=== PATIENT | male | born 1965 | race Caucasian/White ===

== ENCOUNTER 2020-03-08 15:16 | Outpatient (CLI) | payer BC, SELFPAY ==
[2020-03-08 16:04] LABS: Basophils Absolute Auto 0.1 K/mm3 (0.0-0.1); Basophils Percent Auto 0.8 % (0.2-1.2); Eosinophils Absolute Auto 0.3 K/mm3 (0-0.3); Eosinophils Percent Auto 3.4 % (0-4.4); Hematocrit 49.2 % (42.0-52.0); Hemoglobin 16.8 g/dL (14.0-18.0); Immature Granulocyte Absolute 0.01 K/mm3 (0.00-0.031); Immature Granulocyte Percent A 0.1 % (0-0.5); Lymphocytes Absolute Auto 2.91 K/mm3 (0.9-3.2); Lymphocytes Percent Auto 34.2 % (18.3-44.2); Mean Corpuscular HGB Conc 34.1 g/dl (32-36); Mean Corpuscular Hemoglobin 33.9 pg (26-34); Mean Corpuscular Volume 99.4 fl (80-100); Mean Platelet Volume 9.6 fl (7.4-10.4); Monocytes Absolute Auto 0.7 K/mm3 (0.1-0.6); Monocytes Percent Auto 8.5 % (2.6-8.5); Neutrophils Absolute Auto 4.5 K/mm3 (1.3-6.7); Platelet Count Result 191 k/mm3 (150-375); Red Blood Count 4.95 M/mm3 (4.6-6.20); Red Cell Distribution Width 12.7 % (11.5-14.5); White Blood Count 8.5 K/mm3 (4.5-10.0)
[2020-03-08 16:26] LABS: Blood Urea Nitrogen 13 mg/dL (9-20); Calcium 9.3 mg/dL (8.4-10.2); Carbon Dioxide 27 mmol/L (22-30); Chloride 105 mmol/L (98-107); Cholesterol 112 mg/dL (0-200); Estimated Glomerular Filt Rate > 60; Glucose 90 mg/dL (75-110); HDL Direct 39 mg/dL; Potassium 4.1 mmol/L (3.4-5.0); Sodium 139 mmol/L (137-145); Triglycerides 116 mg/dL (<150)
[2020-03-08 16:28] LABS: Hemoglobin A1C 5.9 % (<5.7)
[2020-03-08 16:36] LABS: LDL Cholesterol Direct 48 mg/dL
== END 2020-03-08 15:17 | disposition home or self-care (01) ==
LOC: ANHLAB 15:18
PROVIDERS: PCP Internal Medicine; Visit Provider Internal Medicine
DX: E78.2 Mixed hyperlipidemia (principal); Z79.899 Other long term (current) drug therapy; R73.03 Prediabetes
CPT/HCPCS: 36415; 80048; 80061; 83036; 85025

== ENCOUNTER → 2020-11-20 06:56 | Outpatient (CLI) | payer BC, SELFPAY ==
[2020-11-20 22:47] LABS: SARS-CoV-2 RNA PCR Negative
== END ==
PROVIDERS: PCP Internal Medicine
DX: Z78.9 Other specified health status (principal); Z20.822 Contact with and (suspected) exposure to COVID-19
CPT/HCPCS: C9803; U0003; U0005

== ENCOUNTER 2021-04-08 17:40 | Emergency (ER) | payer BC, SELFPAY ==
--- NOTE | ~2021-04-08 | XR_ITS ---
EXAMINATION: XR abdomen/kub 1V INDICATION: Gross hematuria and left flank pain TECHNIQUE: Supine views of the abdomen were obtained on 2 radiographs. COMPARISON: 06/22/2018 FINDINGS: There is a 1.4 cm stone of the left kidney lower pole. No stones are identified in the righ t kidney, along the expected course of the ureters, or within the urinary bladder. There is a phlebol ith of left pelvis. The lung bases are clear. The bowel gas pattern is normal. There is mild osteoart hritis of the hips. Calcified atherosclerosis is noted. IMPRESSION: 1. Left nephrolithiasis. Reviewed, dictated and finalized at location A. IMPRESSION: 1. Left nephrolithiasis.
[2021-04-08 17:44] VITALS: BP 122/75; PULSE 105; RESP 16; TEMP 36.9; O2SAT 99
--- NOTE | 2021-04-08 18:28 | ED.MALEGU ---
HPI - Male Genitourinary General Chief complaint: Urogenital-Male Stated complaint: urinary issues/back pain Time Seen by Provider: 04/08/21 17:54 Source: patient and RN notes reviewed Mode of arrival: ambulatory Limitations: no limitations History of Present Illness HPI Narrative: Patient presents today complaining of 3-day history of gross hematuria, worsening since yesterday, pain to the scrotum, and left low back pain. Patient takes Flomax daily, but his Flomax was increased by his neurologist 1 week ago, and patient states his flow has been better than normal. He does report some nausea intermittently, but denies vomiting, fever, sweats, chills. Patient does have some chronic low back pain, but reports this left low back pain is worse than normal and has been worse for the last 2 to 3 days. Patient currently takes Xarelto for history of DVT. History of kidney stones. Related Data Home Medications Medication Instructions Recorded Confirmed cholecalciferol (vitamin D3) 10 400 unit PO DAILY 11/02/19 04/08/21 mcg (400 unit) chewable tablet multivitamin 1 tablet PO DAILY 11/02/19 04/08/21 tadalafil 20 mg tablet 20 mg PO DAILY PRN 11/02/19 04/08/21 tamsulosin 0.4 mg capsule 0.4 mg PO DAILY 11/02/19 04/08/21 Allergies Allergy/AdvReac Type Severity Reaction Status Date / Time No Known Allergies Allergy Verified 04/08/21 17:50 Review of Systems Review of Systems: Narrative: CONSTITUTIONAL: Denies body aches, fever, chills, or sweats. EYES: Denies visual changes, redness, or discharge. ENT: Denies rhinorrhea, congestion, sore throat, or otalgia. CARDIOVASCULAR: Denies chest pain, palpitations, or edema. RESPIRATORY: Denies cough or dyspnea. GASTROINTESTINAL: Denies abdominal pain, vomiting, or diarrhea. + Nausea GENITOURINARY: + Hematuria, pain behind the scrotum. SKIN: Denies rash, itching, or wounds. MUSCULOSKELETAL: Denies joint pain, or myalgia. +left low back pain NEUROLOGIC: Denies headache, numbness, tingling, or weakness. PSYCH: Denies depression or anxiety. [facility] Past Medical History Medical History BMI 28.0-28.9,adult BPH (benign prostatic hyperplasia) DVT (deep venous thrombosis) LLE Elevated homocysteine Encounter for routine adult health examination without abnormal findings Encounter for special screening examination for neoplasm of prostate GERD (gastroesophageal reflux disease) Hx of colonic polyps Hx of thrombosis Hyperlipidemia Kidney stone Left foot drop Leg fracture, left Multiple sclerosis Multiple sclerosis On senior care drug therapy Personal history of nicotine dependence Pre-diabetes Sleep apnea Vitamin D deficiency Surgical History Surgical History H/O lithotripsy History of appendectomy History of surgical removal of pilonidal cyst Family History Family History Mother Family history of Parkinson's disease Other Diabetes mellitus Social History Social History Smoking status: Heavy tobacco smoker Second hand tobacco smoke exposure: No Alcohol intake: never Gender identity (if verbalized by the patient): Male Comments At time of signature, I have reviewed and agree with nursing past medical, surgical, social and family history unless otherwise noted. Please see nursing chart for further information. There is no relevant family history pertinent to the presenting complaint Exam Narrative: Exam Narrative: GENERAL: Well-appearing, well-nourished, and in no acute distress. HEAD: Normocephalic, atraumatic. EYES: EOMI. No redness or drainage. Conjunctivae normal. ENT: Mucous membranes pink and moist. NECK: Normal AROM. CHEST: No respiratory distress. Clear to auscultation. HEART: Regular rate and rhythm. No murmur appre
== END 2021-04-08 18:54 | disposition home or self-care (01) ==
PROVIDERS: Emergency Provider Nurse Practitioner
DX: N20.0 Calculus of kidney (principal); N30.01 Acute cystitis with hematuria; Z86.718 Personal history of other venous thrombosis and embolism; K21.9 Gastro-esophageal reflux disease without esophagitis; G35 Multiple sclerosis; G47.30 Sleep apnea, unspecified; N40.0 Benign prostatic hyperplasia without lower urinary tract symptoms
CPT/HCPCS: 74018; 81003; 87086; 99213; G0463

== ENCOUNTER 2023-06-30 11:57 | Emergency (ER) | payer BC, SELFPAY ==
--- NOTE | ~2023-06-30 | XR_ITS ---
XR wrist LT min 3V DATE: 06/30/2023 12:24 INDICATION: Fall. Left wrist and hand injury TECHNIQUE: 4 views of left wrist COMPARISON: None FINDINGS: There is a linear oblique fracture of the second metacarpal shaft. No other fracture or dislocation is noted. There is diffuse osteopenia. IMPRESSION: Second metacarpal shaft fracture Reviewed, dictated and finalized at location L.
--- NOTE | ~2023-06-30 | XR_ITS ---
XR hand LT min 3V DATE: 06/30/2023 12:24 INDICATION: Fall. Left hand injury TECHNIQUE: 3 views COMPARISON: None FINDINGS: There is diffuse osteopenia. There is a linear oblique virtually nondisplaced fracture through the midshaft of the second metacarp al bone. No other fracture or dislocation is detected. IMPRESSION: Virtually nondisplaced linear oblique fracture through the midshaft of the second metacar pal bones Osteopenia Reviewed, dictated and finalized at location L. IMPRESSION: Virtually nondisplaced linear oblique fracture through the midshaft of the second metacarpal bones Osteopenia
[2023-06-30 11:59] VITALS: BP 154/82; PULSE 94; RESP 16; TEMP 37; O2SAT 100
--- NOTE | 2023-06-30 13:22 | ED.GENADULT ---
HPI - General Adult General Chief complaint: Extremity Injury, Upper Stated complaint: left arm injury Time Seen by Provider: 06/30/23 12:27 History of Present Illness HPI narrative: Patient is a 58-year-old male who presents ER with left hand pain. Patient has history of chronic left-sided weakness due to MS. He had a trip and fall and struck his hand. He did not strike his head or lose consciousness. He is on Xarelto. He has swelling around the second metacarpal. He is unable to extend or flex his fingers or wrist at baseline and reports this is unchanged. Related Data Home Medications Medication Instructions Recorded Confirmed cholecalciferol (vitamin D3) 10 400 unit PO DAILY 11/02/19 04/08/21 mcg (400 unit) chewable tablet multivitamin 1 tablet PO DAILY 11/02/19 04/08/21 tadalafil 20 mg tablet (Cialis) 20 mg PO DAILY PRN Erectile 11/02/19 04/08/21 Dysfunction tamsulosin 0.4 mg capsule 0.4 mg PO DAILY 11/02/19 04/08/21 Allergies Allergy/AdvReac Type Severity Reaction Status Date / Time No Known Allergies Allergy Verified 06/30/23 12:13 Review of Systems Musculoskeletal: Comments: Left hand pain and swelling Neurologic: Denies dizziness, Denies headache(s) and Reports focal weakness (Chronic left side due to MS.) PMFSH Past Medical History Medical History BMI 28.0-28.9,adult BPH (benign prostatic hyperplasia) DVT (deep venous thrombosis) LLE Elevated homocysteine Encounter for routine adult health examination without abnormal findings Encounter for special screening examination for neoplasm of prostate GERD (gastroesophageal reflux disease) Hx of colonic polyps Hx of thrombosis Hyperlipidemia Kidney stone Left foot drop Leg fracture, left Multiple sclerosis Multiple sclerosis On senior living drug therapy Personal history of nicotine dependence Pre-diabetes Sleep apnea Vitamin D deficiency Surgical History Surgical History H/O lithotripsy History of appendectomy History of surgical removal of pilonidal cyst Family History Family History Mother Family history of Parkinson's disease Other Diabetes mellitus Social History Social History Smoking status: Heavy tobacco smoker Second hand tobacco smoke exposure: No Alcohol intake: never Gender identity (if verbalized by the patient): Male Exam Narrative: GENERAL: Well-appearing, well-nourished, and in no acute distress. HEAD: Normocephalic, atraumatic. CHEST: Clear to auscultation. No respiratory distress. HEART: Regular rate and rhythm. Normal peripheral pulses. ABDOMEN: Soft, nontender, nondistended. EXTREMITIES: Left hand with swelling over the second metacarpal near the MCP. Can move the left upper extremity at the shoulder but not the elbow or wrist which is normal for him. NEURO: Alert and oriented x3. PSYCH: Normal mood and affect. Course Course Emergency Course: Patient splinted. Follow-up with hand surgery. [place] for home. Vital Signs Vital signs: Vital Signs Temperature 98.6 F 06/30/23 11:59 Pulse Rate 94 06/30/23 11:59 Respiratory Rate 16 06/30/23 11:59 Blood Pressure 154/82 H 06/30/23 11:59 Pulse Oximetry 100 06/30/23 11:59 Oxygen Delivery Room Air 06/30/23 11:59 Temperature 98.6 F 06/30/23 11:59 Pulse Rate 94 06/30/23 11:59 Respiratory Rate 16 06/30/23 11:59 Blood Pressure 154/82 H 06/30/23 11:59 Pulse Oximetry 100 06/30/23 11:59 Oxygen Delivery Room Air 06/30/23 11:59 Procedures Orthopedic Splinting/Casting Injury #1: Splinting/Casting Date: 06/30/23 Side: left Upper Extremity Injury Location: hand Splint: customized in ED OCL: volar Pre-Procedure Neuro Vascula
== END 2023-06-30 13:40 | disposition home or self-care (01) ==
PROVIDERS: Emergency Provider Emergency Medicine
DX: S62.351A Nondisplaced fracture of shaft of second metacarpal bone, left hand, initial encounter for closed fracture (principal); G35 Multiple sclerosis; E78.5 Hyperlipidemia, unspecified; E55.9 Vitamin D deficiency, unspecified; G47.30 Sleep apnea, unspecified; N40.0 Benign prostatic hyperplasia without lower urinary tract symptoms; K21.9 Gastro-esophageal reflux disease without esophagitis; R73.03 Prediabetes; F17.200 Nicotine dependence, unspecified, uncomplicated; Z86.718 Personal history of other venous thrombosis and embolism; Z87.442 Personal history of urinary calculi; Z86.010 Personal history of colon polyps; M85.842 Other specified disorders of bone density and structure, left hand; W01.0XXA Fall on same level from slipping, tripping and stumbling without subsequent striking against object, initial encounter
CPT/HCPCS: 29125; 73110; 73130; 99284; A4565

== ENCOUNTER 2023-07-29 15:09 | Outpatient (CLI) | payer BC, SELFPAY ==
--- NOTE | ~2023-07-29 | XR_ITS ---
Left Hand Technique: PA, oblique, and lateral views were obtained. Clinical History: Second metacarpal fracture COMPARISON: 06/30/2023 Findings: Oblique, minimally displaced fracture of the second metacarpal shaft is similar to prior ex am. There is probable generalized osteopenia. Joint spaces are preserved. Soft tissues are unremarkab le. Impression: Oblique, minimally displaced fracture of the second metacarpal shaft is essentially unchanged from pr ior exam. Reviewed, dictated and finalized at location M. BPC DEVELOPER Impression: Oblique, minimally displaced fracture of the second metacarpal shaft is essenti ally unchanged from prior exam.
== END 2023-07-29 15:10 | disposition home or self-care (01) ==
PROVIDERS: Visit Provider Plastic Surgery
DX: S62.321A Displaced fracture of shaft of second metacarpal bone, left hand, initial encounter for closed fracture (principal); X58.XXXA Exposure to other specified factors, initial encounter
CPT/HCPCS: 73130

== ENCOUNTER 2023-08-12 14:47 | Outpatient (CLI) | payer BC, SELFPAY ==
--- NOTE | ~2023-08-12 | XR_ITS ---
EXAM: XR hand LT min 3V DATE: 08/12/2023 15:06 HISTORY: left 2nd mc fx . COMPARISON: 07/29/2023. FINDINGS: Decreased mineralization. Redemonstration of the oblique minimally angulated fracture of t he second metacarpal shaft, unchanged alignment. Evidence of early healing change. No new acute fract ure or dislocation. No lytic or blastic lesion. Mild scattered degenerative changes. No erosion or pe riosteal change. Soft tissues within normal limits. IMPRESSION: Osteopenia. Early healing change noted in the minimally angulated fracture of the left se cond metacarpal shaft, which is in stable alignment. Reviewed, dictated and finalized at location K. [employer] OFFICER IMPRESSION: Osteopenia. Early healing change noted in the minimally angulated f racture of the left second metacarpal shaft, which is in stable alignment.
== END 2023-08-12 14:48 | disposition home or self-care (01) ==
PROVIDERS: Visit Provider Plastic Surgery
DX: S62.301A Unspecified fracture of second metacarpal bone, left hand, initial encounter for closed fracture (principal); X58.XXXA Exposure to other specified factors, initial encounter; M85.842 Other specified disorders of bone density and structure, left hand
CPT/HCPCS: 73130

== ENCOUNTER 2024-04-01 16:17 | Emergency (ER) | payer BC, SELFPAY ==
--- NOTE | ~2024-04-01 | XR_ITS ---
XR wrist LT min 3V Ordering provider: Sinan Danielle APRN History: . wrist injury s/p fall . Comparison: None. FINDINGS: BONES: Osteopenia of the bones. Lucency in the scaphoid is possible which may indicate a fracture. Karen cency in the second metacarpal bone is also noted. JOINT SPACES: Slight narrowing of the carpometacarpal joints. SOFT TISSUES: Normal. IMPRESSION: Lucencies in the scaphoid and second metacarpal bones. Fractures cannot be excluded. Follow-up advise d. Reviewed, dictated and finalized at location A. IMPRESSION: Lucencies in the scaphoid and second metacarpal bones. Fractures cannot be excl uded. Follow-up advised.
--- NOTE | ~2024-04-01 | XR_ITS ---
XR hand LT min 3V Ordering provider: Sinan Danielle APRN History: . hand injury s/p fall . Comparison: None. FINDINGS: BONES: Lucency in the second metacarpal bone which is most likely a fracture. Follow-up advised. JOINT SPACES: Well maintained. SOFT TISSUES: Unremarkable. IMPRESSION: Lucency in the second metacarpal bone which is most likely a fracture. Follow-up advised. Reviewed, dictated and finalized at location A. IMPRESSION: Lucency in the second metacarpal bone which is most likely a fracture. Follow-u p advised.
[2024-04-01 16:27] VITALS: BP 144/82; PULSE 67; RESP 16; TEMP 36.6; O2SAT 95
--- NOTE | 2024-04-01 16:31 | ED.UPPEXIN ---
HPI - Extremity Injury (Upper) General Chief Complaint: Extremity Injury, Upper Stated Complaint: fall, L hand injury Time Seen by Provider: 04/01/24 16:21 History of Present Illness HPI narrative: 58-year-old male history of MS with left-sided of paralysis presents to the emergency room for evaluation of left hand and wrist pain. Patient states that he has foot drop on the left side, and frequently falls. states yesterday he fell at work, landing left hand and wrist. Related Data Home Medications Medication Instructions Recorded Confirmed cholecalciferol (vitamin D3) 10 400 unit PO DAILY 11/02/19 07/29/23 mcg (400 unit) chewable tablet multivitamin 1 tablet PO DAILY 11/02/19 07/29/23 tadalafil 20 mg tablet (Cialis) 20 mg PO DAILY PRN Erectile 11/02/19 07/29/23 Dysfunction tamsulosin 0.4 mg capsule 0.4 mg PO DAILY 11/02/19 07/29/23 Allergies Allergy/AdvReac Type Severity Reaction Status Date / Time No Known Allergies Allergy Verified 04/01/24 16:31 Review of Systems Review of Systems: ROS unremarkable except for noted in HPI PMFSH Past Medical History Medical History BMI 28.0-28.9,adult BPH (benign prostatic hyperplasia) DVT (deep venous thrombosis) LLE Elevated homocysteine Encounter for routine adult health examination without abnormal findings Encounter for special screening examination for neoplasm of prostate GERD (gastroesophageal reflux disease) Hx of colonic polyps Hx of thrombosis Hyperlipidemia Kidney stone Left foot drop Leg fracture, left Multiple sclerosis Multiple sclerosis On prison drug therapy Personal history of nicotine dependence Pre-diabetes Sleep apnea Vitamin D deficiency Surgical History Surgical History H/O lithotripsy History of appendectomy History of surgical removal of pilonidal cyst Family History Family History Mother Family history of Parkinson's disease Other Diabetes mellitus Social History Social History Smoking status: Heavy tobacco smoker Second hand tobacco smoke exposure: No Alcohol intake: never Lack of Transportation: No Lack of Food: Never True Current Housing: I Have Housing Concerned About Future Housing: No Difficulty Paying Gas/Electric Bills: No Difficulty Paying for Meds: No Currently Unemployed: No Education: Trade/Vocational Certificate Difficulty w/ Childcare or Family Care: No Gender identity (if verbalized by the patient): Male Exam Narrative: GENERAL: Well-appearing, well-nourished, no physical limitations, and in no acute distress. HEAD: Normocephalic, atraumatic. EYES: Conjunctivae normal, PERRLA and EOMI. CHEST: Clear to auscultation. No respiratory distress. No wheezes rales or rhonchi. HEART: Regular rate and rhythm. No murmur heard. Normal peripheral pulses. EXTREMITIES: left hand/wrist: +TTP with STS to 3rd finger, dorsal surface of hand, medial side of wrist. pain with passive movement. + snuffbox tenderness SKIN: Warm, dry, no rash. No noted wounds NEURO:. Alert and oriented x3. left-sided weakness consistent with history of MS, CN's II-XI intact bilaterally PSYCH: Cooperative. Normal mood and affect. Discharge Plan Discharge Clinical Impression: Closed fracture of scaphoid of left wrist, Closed left hand fracture Patient Disposition: Home, Self-Care Condition: Stable Instructions: Antibiotic Form, Wrist Fracture in Adults (ED) Prescriptions: New hydrocodone-acetaminophen 5-325 mg tablet 1 tablet PO Q6H PRN (Reason: pain) Qty: 20 0RF No Action cephalexin 500 mg capsule 500 mg PO Q6H 7 Days Qty: 28 0RF multivitamin Tablet 1 tablet PO DAILY tamsulosin 0.4 mg capsule 0.4 mg PO DAILY tadalafil [Cialis] 2
[2024-04-01] MEDS: HYDROcodone/acetaminophen (*CRX) 5-325 MG TABLET 1 TAB PO (17:27)
== END 2024-04-01 18:37 | disposition home or self-care (01) ==
PROVIDERS: Emergency Provider Nurse Practitioner Family
DX: S62.002A Unspecified fracture of navicular [scaphoid] bone of left wrist, initial encounter for closed fracture (principal); S62.301A Unspecified fracture of second metacarpal bone, left hand, initial encounter for closed fracture; G35 Multiple sclerosis; G81.94 Hemiplegia, unspecified affecting left nondominant side; E78.5 Hyperlipidemia, unspecified; E55.9 Vitamin D deficiency, unspecified; N40.0 Benign prostatic hyperplasia without lower urinary tract symptoms; K21.9 Gastro-esophageal reflux disease without esophagitis; M21.372 Foot drop, left foot; R73.03 Prediabetes; G47.30 Sleep apnea, unspecified; Z86.010 Personal history of colon polyps; Z86.718 Personal history of other venous thrombosis and embolism; Z87.442 Personal history of urinary calculi; F17.200 Nicotine dependence, unspecified, uncomplicated; Z79.01 Long term (current) use of anticoagulants; Z79.899 Other long term (current) drug therapy; W19.XXXA Unspecified fall, initial encounter
CPT/HCPCS: 29125; 73110; 73130; 99284; A9270

== ENCOUNTER 2024-04-28 14:44 | Outpatient (CLI) | payer BC, SELFPAY ==
--- NOTE | ~2024-04-28 | XR_ITS ---
XR hand LT min 3V Ordering provider: Cheri Barbour PA-C History: . LIMITED MOBILITY DUE TO MS/INJURY 1 MONTH AGO/PRIOR IMAGING . Comparison: April 01, 2024 FINDINGS: BONES: Fracture of the scaphoid bone is noted. Fracture in the second metacarpal bone mid shaft is no charley. Osteopenia of the bones. JOINT SPACES: Well maintained. SOFT TISSUES: Unremarkable. IMPRESSION: Fracture in the scaphoid bone. Fracture second metacarpal bone. Reviewed, dictated and finalized at location A.
== END 2024-04-28 14:45 | disposition home or self-care (01) ==
PROVIDERS: Visit Provider Physician Assistant Surgical
DX: S62.002D Unspecified fracture of navicular [scaphoid] bone of left wrist, subsequent encounter for fracture with routine healing (principal); S62.301D Unspecified fracture of second metacarpal bone, left hand, subsequent encounter for fracture with routine healing; X58.XXXD Exposure to other specified factors, subsequent encounter
CPT/HCPCS: 73130

== ENCOUNTER 2024-06-13 12:49 | Outpatient (CLI) | payer BC, SELFPAY ==
--- NOTE | ~2024-06-13 | XR_ITS ---
XR wrist LT min 3V Ordering provider: Cheri Barbour PA-C History: . Unspecified injury of left wrist, PAIN AFTER FALL . Comparison: April 28, 2024 FINDINGS: BONES: Healing Fracture of the scaphoid is noted. Healing fracture in the second metacarpal bone. JOINT SPACES: Well maintained. SOFT TISSUES: Normal. IMPRESSION: Healing fractures in the scaphoid and second metacarpal bone. Reviewed, dictated and finalized at location A.
== END 2024-06-13 12:50 | disposition home or self-care (01) ==
PROVIDERS: Visit Provider Physician Assistant Surgical
DX: S62.002D Unspecified fracture of navicular [scaphoid] bone of left wrist, subsequent encounter for fracture with routine healing (principal); S62.301D Unspecified fracture of second metacarpal bone, left hand, subsequent encounter for fracture with routine healing; W19.XXXD Unspecified fall, subsequent encounter
CPT/HCPCS: 73110

== ENCOUNTER 2024-12-12 01:52 | Day surgery (SDC) | payer OTHER, SELFPAY ==
[2024-12-02 10:12] VITALS: BMI 30.8
--- NOTE | 2024-12-02 10:25 | PC.NURSE ---
Spoke with patient regarding medication Xarelto. Patient verbalizes understanding that the last dose is to be taken on 12/09/2024 and the Endoscopist will instruct them when to restart after the procedure.
--- OUTSIDE RECORDS SUMMARY | 2024-12-12 01:55 | XMS_ITS | Referral Summary ---
Author Organization [facility] Address [address] [place] [id number] Care Team Providers Care Automatic Brine Mixer Operator Name Role Phone Iain Gracia MD Primary Care Provider [phone] Encounters Date Type Department Care Team Description 11/04/2024 Documentation [facility] Multiple Sclerosis [address] [place] [phone] Susan Victoria RN 11/04/2024 Orders Only [facility] Multiple Sclerosis [address] [place] [phone] Eduardo Lopez MD Multiple sclerosis ([facility]) (Primary Dx) 11/01/2024 10:00 AM THERMITE BOMB LOADER Telemedicine [facility] Multiple Sclerosis [address] [facility] 7th [place] [phone] Eduardo Lopez MD Multiple sclerosis ([facility]) (Primary Dx); Male erectile disorder; Abnormal gait; Cervical stenosis of spinal canal, mod-severe by MRI 2021.; Left hand weakness 10/04/[address] [phone] Ernst Delgadillo MD from Last 3 Months Allergies No known active allergies Medications cholecalciferol (VITAMIN D-3) 2000 unit capsuleIndications :Vitamin D Deficiency Take 1 capsule (2,000 Units total) by mouth daily as needed Active vitamin B complex capsuleIndications :Vitamin Deficiency Prevention Take 1 capsule by mouth every morning Active esomeprazole DR (NexIUM) 20 mg capsuleIndications :Stress Ulcer Prophylaxis Take 1 capsule (20 mg total) by mouth daily before breakfast Active tadalafiL (CIALIS) 20 mg tablet TAKE 1 TABLET BY MOUTH ONE HOUR BEFORE NEEDED DIRECTED 3 tablet 3 08/27/20 Active Additional Information Patient taking differently: 20 mg oral Daily PRN, TAKE 1 TABLET BY MOUTH ONE HOUR BEFORE NEEDED DIRECTED,Indications: Erectile Dysfunction, Informant: Self, Reported on 11/01/2024 [id number] on-minerals tabletIndications: Vitamin Deficiency Prevention Take 1 tablet by mouth every morning Active ascorbic acid (VITAMIN C) 100 mg tablet Take 1 tablet (100 mg total) by mouth daily Active rosuvastatin (CRESTOR) 40 mg tabletIndications: Mixed hyperlipidemia TAKE 1 TABLET(40 MG) BY MOUTH DAILY 90 tablet 3 04/12/20 24 Active tamsulosin (FLOMAX) 0.4 mg extended release capsule Take 1 capsule (0.4 mg total) by mouth daily 90 capsule 07/07/20 Active metFORMIN XR (GLUCOPHAGE XR) 500 mg 24 hr tabletIndications: Type 2 diabetes mellitus without complication, without long-term current use of insulin (HCC) Take 1 tablet (500 mg total) by mouth daily with breakfast 90 tablet 3 07/07/20 24 025 Active lisinopril-hydroCH LOROthiazide (ZESTORETIC) 20-12.5 mg per tabletIndications: hypertension Take 1 tablet by mouth daily 90 tablet 3 07/07/20 24 025 Active Xarelto 20 mg tabletIndications: History of recurrent deep vein thrombosis (DVT) TAKE 1 TABLET(20 MG) BY MOUTH DAILY 90 tablet 09/23/19 25 Active Active Problems Problem Noted Date Diagnosed Date Colon cancer screening 12/31/2023 Type 2 diabetes mellitus wit hout complication, without long-term current use of insulin 12/31/2023 Assessment & Plan (07/07/2024 1:28 PM CDT): A1c 6.8% improved from 7.1%, at goal. Stable well controlled on current regimen, will send in refills as needed Assessment & Plan (04/01/2024 3:27 PM CDT): A1c 7.1% increased from 6.7%. will plan to start on metformin, and will follow up in 3 months. Reviewed dietary modifications, and will refer to diabetic education for further discussion. Assessment & Plan (01/01/2024 7:43 AM CDT): Due for A1c Cervical stenosis of spinal canal, mod-severe by MRI 2021. 10/27/2023 Personal history of colonic polyps 12/26/2022 Vitamin D deficiency 12/20/2021 Assessment & Plan (01/01/2024 7:43 AM CDT): Due for lab, will adjust supplement as needed Assessment & Plan (12/26/2022 3:10 PM CDT): Due for lab, will adjust supplement as needed Assessment & Plan (12/20/2021 4:11 PM CDT): Due for lab, will adjust supplement as needed. Mixed hyperlipidemia 12/20/2021 Assessment & Plan (01/01/2024 7:43 AM CDT): Stable well controlled on current regimen, will send in refills as needed Assessment & Plan (12/26/2022 3:09 PM CDT): Stable well controlled on current regimen, will send in refills as needed Assessment & Plan (12/20/2021 4:10 PM CDT): Due for lab, will send in medication refills as needed. History of recurrent deep vein thrombosis (DVT) 12/20/2021 Assessment & Plan (01/01/2024 7:43 AM CDT): Stable well controlled on current regimen, will send in refills as needed Assessment & Plan (12/26/2022 3:09 PM CDT): Stable well controlled on current regimen, will send in refills as needed Primary hypertension 04/10/2021 Assessment & Plan (07/07/2024 1:27 PM CDT): Stable well controlled on current regimen, will send in refills as needed Assessment & Plan (04/01/2024 3:26 PM CDT): Hypertensive in office today, reports normal blood pressures at home. Stable well controlled on current regimen, will send in refills as needed Assessment & Plan (12/31/2023 3:08 PM CDT): Discussed risks of untreated hypertension including but not limited to stroke, heart disease, kidney disease, eye disease, and sexual side effects. Discussed modifiable risk factors including diet, exercise, salt intake, and weight loss. Will have patient keep blood pressure log for the next two weeks and send back results. Will determine at that time if antihypertensive is needed. Assessment & Plan (12/20/2021 3:39 PM CDT): Discussed risks of untreated hypertension including but not limited to stroke, heart disease, kidney disease, eye disease, and sexual side effects. Discussed modifiable risk factors including diet, exercise, salt intake, and weight loss. Will have patient keep blood pressure log for the next two weeks and send back results. Will determine at that time if antihypertensive is needed. Assessment & Plan (04/10/2021 2:38 PM CDT): Will have patient keep blood pressure log for the next two weeks and send back results. Will determine at that time if antihypertensive is needed. Kidney stone 04/10/2021 Assessment & Plan (04/10/2021 2:39 PM CDT): Patient was seen at urgent care over weekend for hematuria. Minimal records available for review. Xray showed 1.4cm left lower pole kidney stone. Patient on tamsulosin, will continue. Will check BMP, UA, and get CT scan to better evaluate. Will refer to urology. GERD (gastroesophageal reflux disease) 10/09/202 0 Assessment & Plan (01/01/2024 7:43 AM CDT): Stable well controlled on current regimen, will send in refills as needed Assessment & Plan (12/26/2022 3:10 PM CDT): Stable well controlled on current regimen, will send in refills as needed Smoker 05/23/2020 Assessment & Plan (01/01/2024 7:44 AM CDT): We discussed the risks of smoking including cardiovascular disease, pulmonary disease, osteoporosis and cancer risks. We talked about reducing risks through smoking cessation. We reviewed approaches to quitting smoking including behavioral changes; nicotine replacement with gums, patches, lozenges; medications such as buproprion or chantix. I also gave resources such as [facility] smoking cessation clinic and 0-730-PHPO-NOW for additional support. I spent 4 minutes discussing smoking and smoking cessation. Ordered lung cancer screening. Assessment & Plan (12/26/2022 3:10 PM CDT): We discussed the risks of smoking including cardiovascular disease, pulmonary disease, osteoporosis and cancer risks. We talked about reducing risks through smoking cessation. We reviewed approaches to quitting smoking including behavioral changes; nicotine replacement with gums, patches, lozenges; medications such as buproprion or chantix. I also gave resources such as [facility] smoking cessation clinic and 4-130-JLCU-NOW for additional support. I spent 4 minutes discussing smoking and smoking cessation. Patient declines lung cancer screening at this time. Assessment & Plan (05/23/2020 4:29 PM CDT): We discussed the risks of smoking including cardiovascular disease, pulmonary disease, osteoporosis and cancer risks. We talked about reducing risks through smoking cessation. We reviewed approaches to quitting smoking including behavioral changes; nicotine replacement with gums, patches, lozenges; medications such as buproprion or chantix; and even alternative options like hyponosis or ear shock therapy. I also gave resources such as [facility] Practice smoking cessation clinic and 1-903-OHMQ-NOW for additional support. I spent 4 minutes discussing smoking and smoking cessation. Left hand weakness 08/16/2019 Male erectile disorder 09/20/2013 Abnormal gait 11/16/2012 Deep vein thrombosis (DVT) of lower extremity Assessment & Plan (12/20/2021 3:36 PM CDT): History of multiple DVTs on chronic anticoagulation. Will continue on xarelto. Assessment & Plan (05/23/2020 3:46 PM CDT): On xarelto 20 mg. Reviewed ED warnings for DVT and PE Multiple sclerosis 09/01/2011 Assessment & Plan (01/01/2024 7:44 AM CDT): Stable, follows with neurology, no changes. Assessment & Plan (05/23/2020 4:26 PM CDT): Stable. Diagnosed over 10 yrs ago. Not on any medications at this time. Managed by Dr. 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 Immunizations Immunization Administration Dates Next Due Influenza, Quadrivalent, Spl it, Preservative Free, Intramuscular 06/22/2020 Pfizer SARS-CoV-2 Monovalent Vaccination (12+ Yrs) PURPLE 12/08/2020,11/09/2020 Tdap 12/26/2022 Social History Tobacco Use Types Packs/Day Years Used Date Smoking Tobacco: Every Day Cigarettes 1.5 43.2 Started: 1979 Smokeless Tobacco: Never Tobacco Cessation:Ready to Q uit: Not Asked; Counseling Given: Not Answered Alcohol Use Standard Drinks/Week Comments Yes 0 (1 standard drink = 0.6 oz pur e alcohol) 1/week AUDIT-C Answer Date Recorded Q1: How often do you have a drink containing alc ohol? Monthly or less 12/31/2023 Average Number of Drinks Not on file 024 Frequency of Binge Drinking Not on file 12/13 Overall Financial Resource Strain (CARDIA) Answe r Date Recorded How hard is it for you to pa y for the very basics like food, housing, medical care, and heating? Not very hard 05/23/2020 PHQ-2 Answer Date Recorded PHQ-2 Total Score (If total score is 3 or more points, staff should administer the PHQ-9) 0 12/31/2023 [facility] - Occupational Stress Questionnaire Answer Date Recorded Do you feel stress - tense, restless, nervous, or anxious, or unable to sleep at night because your mind is troubled all the time - these days? Only a little 05/23/2020 Exercise Vital Sign Answer Date Recorde d On average, how many days pe r week do you engage in moderate to strenuous exercise (like a brisk walk)? 2 days 05/23/2020 On average, how many minutes do you engage in exercise at this level? 30 min 05/23/2020 Hunger Vital Sign Answer Date Recorded Within the past 12 months, y ou worried that your food would run out before you got the money to buy more. Never true 05/23/20 20 Within the past 12 months, t he food you bought just didn't last and you didn't have money to get more. Never true 05/23/2020 PRAPARE - Transportation Answer Date Re corded In the past 12 months, has l ack of transportation kept you from medical appointments or from getting medications? No 05/2020 In the past 12 months, has l ack of transportation kept you from meetings, work, or from getting things needed for daily living? 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 Not on file Not on file Not on f ile Last Filed Vital Signs Vital Sign Reading Time Taken Comments Blood Pressure 126/82 07/07/2024 1:07 PM CDT Pulse 113 07/07/2024 1:07 PM CDT Temperature 35.6 C (96 F) 05/30/2021 9:06 AM CDT Respiratory Rate 17 05/16/2021 1:20 PM CDT Oxygen Saturation 98% 07/07/2024 1:07 PM CDT Inhaled Oxygen Concentration - - Weight 108.9 kg (240 lb) 07/07/2024 1:07 PM CDT pt verbalized Height 185.4 cm (6' 1 ) 07/07/2024 1:07 PM CDT Body Mass Index 31.66 07/07/2024 1:07 PM CDT Plan of Treatment Scheduled Procedures Name Priority Associated Diagnoses Date/Ti sc COLONOSCOPY Open Access Colon cancer screening COLONOSCOPY Colon cancer screening Personal history of colonic polyps COLONOSCOPY Colon cancer screening Medical Devices Explanted Type Area Greeter Guest Services Device Identifier Shelf Expiration Date Model / Serial / Lot [employer] [id number] Universa 6fr 26cm Radiopaque Positioner Monofilament Tether 2 - Sna - [id number] Implanted:Qty: 1 on 05/16/2021 by Darnell Somers MD at [facility] Explanted:Qty: 1 on 05/30/2021 by Emi Sawyer NP Stent Left: [employer] [id number] 03/08/2024 [id number] / NA / [id number] Procedures Procedure Name Priority Date/Time Associated Diagnosis Comments POCT HEMOGLOBIN A1C Routine 07/07/2024 1:23 PM CDT Type 2 diabetes mellitus without complication, without long-term current use of insulin (HCC) CT LUNG CANCER SCREENING Schedule Routine, Read Routine (OP Routine) 01/29/2024 3:01 PM CDT Cigarette nicotine dependence without complication EGFR Routine 12/31/2023 3:23 PM CDT Preventative health care LIPID PANEL Routine 12/31/2023 3:23 PM CDT Mixed hyperlipidemia Preventative health care PSA SCREEN Routine 12/26/2022 3:10 PM CDT Prostate cancer screening HM COLONOSCOPY Routine 12/11/2017 from Last 3 Months or Most Recently Relevant to Health Maintenance Results * POCT hemoglobin A1c (07/07/2024 1:23 PM CDT) Hemoglobin A1C, POC 6.8 4.0 - 5.6 % Blood 07/07/2024 1:23 PM CDT Ernst Delgadillo MD POINT OF CARE TEST ORDER NABILA Final Result * CT Lung Cancer Screening (01/29/2024 3:01 PM CDT) Anatomical Region Laterality Modality Chest N/A Computed Tomogra phy 01/29/2024 3:05 PM CDT Impressions 01/29/2024 3:06 PM CDT 1. LungRADS Category 1 (negative) . Recommend Low dose Screening CT of chest in 12 months. LungRADS Categories: 1 - Negative (no nodules, or only benign calcified or fat-containing nodules) 2 - Benign Appearance or Behavior (nodules with very low likelihood of becoming a clinically active cancer due to size or lack of growth) 3 - Probably Benign (probably benign findings-short term follow up suggested; includes nodules with a low likelihood of becoming a clinically active cancer) 4A,4B,4X - Suspicious (category 3 or 4 nodules with findings for which additional diagnostic testing and/or tissue sampling is recommended) S - Other (clinically significant or potentially clinically significant findings (non-lung cancer) C - Prior Lung Cancer (modifier for patients with a prior diagnosis of lung cancer who return to screening) Dictated by: Jaxson Sawant MD The radiology attending physician has personally reviewed this study, and had reviewed and/or edited this written report and agrees with it. Electronically signed by: Mateo Lovett M.D. Narrative 01/29/2024 3:06 PM CDT EXAMINATION: Lung cancer screening CT of the Chest without intravenous contrast HISTORY: Lung Cancer Screening TECHNIQUE: Low radiation dose chest protocol. No intravenous contrast. Reconstructed slice width 1.[address] Dose Index 1.22 mGy. Dose-length product 49 mGy-cm. COMPARISON: None FINDINGS: Lung nodules or findings of lung cancer: None Smoking related lung disease: emphysema Other findings: Coronary artery calcifications. Procedure Note Mateo Lovett MD - 01/29/2024 EXAMINATION: Lung cancer screening CT of the Chest without intravenous contrast HISTORY: Lung Cancer Screening TECHNIQUE: Low radiation dose chest protocol. No intravenous contrast. Reconstructed slice width 1.[address] Dose Index 1.22 mGy. Dose-length product 49 mGy-cm. COMPARISON: None FINDINGS: Lung nodules or findings of lung cancer: None Smoking related lung disease: emphysema Other findings: Coronary artery calcifications. IMPRESSION: 1. LungRADS Category 1 (negative) . Recommend Low dose Screening CT of chest in 12 months. LungRADS Categories: 1 - Negative (no nodules, or only benign calcified or fat-containing nodules) 2 - Benign Appearance or Behavior (nodules with very low likelihood of becoming a clinically active cancer due to size or lack of growth) 3 - Probably Benign (probably benign findings-short term follow up suggested; includes nodules with a low likelihood of becoming a clinically active cancer) 4A,4B,4X - Suspicious (category 3 or 4 nodules with findings for which additional diagnostic testing and/or tissue sampling is recommended) S - Other (clinically significant or potentially clinically significant findings (non-lung cancer) C - Prior Lung Cancer (modifier for patients with a prior diagnosis of lung cancer who return to screening) Dictated by: Jaxson Sawant MD The radiology attending physician has personally reviewed this study, and had reviewed and/or edited this written report and agrees with it. Electronically signed by: Mateo Lovett M.D. Ernst Delgadillo MD IMG CT PROCEDURES Final Result * eGFR (12/31/2023 3:23 PM CDT) eGFR >90 >=60 mL/min/1. 73 m2 Comment: Interpretive Data Reference Interval Normal >/= 90 mL/min/1.73m2 Mildly decreased* 60 - 89 mL/min/1.73m2 Mildly to moderately decreased 45 - 59 mL/min/1.73m2 Moderately to severely decreased 30 - 44 mL/min/1.73m2 Severely decreased 15 - 29 mL/min/1.73m2 Kidney Failure < 15 mL/min/1.73m2 *Relative to young adult level Estimated glomerular filtration rate is determined by the 2020 CKD-EPI equation recommended by the National Kidney Foundation (A Unifying Approach to GFR Estimation: Recommendations of the NKF-ASK Task Force on Reassessing the Inclusion of Race in Diagnosing Kidney Disease, JASN 2020). The CKD-EPI equation should not be used for patients with unstable renal function and has not been validated in children and those over 70. Current interpretive data was last reviewed 2021. Blood 12/31/2023 3:23 PM CDT 12/31/2023 6:32 PM CDT us Ernst Delgadillo MD LAB BLOOD ORDERABLES Fin al Result [facility] One [facility] Department [place] [address] * (ABNORMAL) Lipid panel (12/31/2023 3:23 PM CDT) Cholesterol 116 30 - 199 mg/dL Comment: Interpretive Data Ages < or = 19 years Acceptable: <170 mg/dL Borderline high: 170-199 mg/dL High: >or= 200 mg/dL Ages > or = 20 years Desirable: <200 mg/dL Borderline high: 200-239 mg/dL High: >or= 240 mg/dL Literature References: 1. Expert Panel on Integrated Guidelines for Cardiovascular Health and Risk Reduction in Children and Adolescents. Pediatrics 2011;128:S213 2. NCEP Expert Panel. Circulation 2004;110:227 Current Interpretive Data was last revised on 2018. Triglycerides 213(H) <=149 mg/dL [facility] Comment: Interpretive Data Ages < or = 9 years Acceptable: <75 mg/dL Borderline high: 75-99 mg/dL High: >or= 100 mg/dL Ages 10 to 20 years Acceptable: <90 mg/dL Borderline high: 90-129 mg/dL High: >or= 130 mg/dL Ages > or = 20 years Desirable: <150 mg/dL Borderline high: 150-199 mg/dL High: 200-499 mg/dL Very high: >or= 499 mg/dL Literature References: 1. Expert Panel on Integrated Guidelines for Cardiovascular Health and Risk Reduction in Children and Adolescents. Pediatrics 2011;128:S213 2. NCEP Expert Panel. Circulation 2004;110:227 Current Interpretive Data was last revised on 2018. HDL 44 >=40 mg/dL [facility] Comment: Interpretive Data Ages < or = 19 years Acceptable: >45 mg/dL Borderline low: 40-45 mg/dL Low: <40 mg/dL Ages > or = 20 years Desirable: >or= 60 mg/dL Low: <40 mg/dL Literature References: 1. Expert Panel on Integrated Guidelines for Cardiovascular Health and Risk Reduction in Children and Adolescents. Pediatrics 2011;128:S213 2. NCEP Expert Panel. Circulation 2004;110:227 Current Interpretive Data was last revised on 2018. LDL, calculated 29 <=129 mg/dL [facility] Comment: Interpretive Data Ages < or = 19 years Acceptable: <110 mg/dL Borderline high: 110-129 mg/dL High: >or= 130 mg/dL Ages > or = 20 years Optimal: <100 mg/dL Near optimal: 100-129 mg/dL Borderline high: 130-159 mg/dL High: >160 mg/dL Literature References: 1. Expert Panel on Integrated Guidelines for Cardiovascular Health and Risk Reduction in Children and Adolescents. Pediatrics 2011;128:S213 2. NCEP Expert Panel. Circulation 2004;110:227 Current Interpretive Data was last revised on 2018. Non-HDL Cholesterol 72 mg/dL [facility] Comment: Interpretive Data Ages < or = 19 years Acceptable: <120 mg/dL Borderline high: 120-144 mg/dL High: >145 mg/dL Ages > or = 20 years When triglycerides are >200 mg/dL, Non-HDL cholesterol is a secondary target of therapy with treatment goals that are 30 mg/dL greater than the LDL cholesterol target. Literature References: 1. Expert Panel on Integrated Guidelines for Cardiovascular Health and Risk Reduction in Children and Adolescents. Pediatrics 2011;128:S213 2. NCEP Expert Panel. Circulation 2004;110:227 Current Interpretive Data was last revised on 2018. Chol/HDL ratio 3 [facility] Blood 12/31/2023 3:23 PM CDT 12/31/2023 6:20 PM CDT us Ernst Delgadillo MD LAB BLOOD ORDERABLES Fin al Result [facility] Department [place] [address] * PSA screen (12/26/2022 3:10 PM CDT) PSA-Total 0.89 <=3.90 ng/mL [facility] Comment: Interpretive Data AGE SEX REFERENCE INTERVAL 0 minutes-150 years Female None 0 minutes-49 years Male None 50-59 years Male 0-3.90 60-69 years Male 0-5.40 70-79 years Male 0-6.20 80-150 years Male 0-6.20 The Tatyana PSA Total assay procedure was used. Results from different manufacturers or methods may not be comparable. Serial testing should be performed using the same method. Current interpretive data last revised 22. Blood 12/26/2022 3:10 PM CDT 12/26/2022 5:07 PM CDT Ernst Delgadillo MD LAB BLOOD ORDERABLES Fin al Result [facility] Department [place] [address] * (ABNORMAL) COLONOSCOPY (12/11/2017) Scribed Colonoscopy Abnormal 12/11/2017 Historical Provider HEALTH MAINTENANCE Final Result from Last 3 Months or Most Recently Relevant to Health Maintenance Insurance [facility] [place] [facility] Care Teams Automatic Brine Mixer Operator Relationship Specialty Start Date End Date Iain Gracia MD PCP - General Internal Medicine 10/17/24
--- OUTSIDE RECORDS SUMMARY | 2024-12-12 01:55 | XMS_ITS | Clinical Summary ---
Author Organization [facility] Address [address] [place] [address] Care Team Providers Care Dethistler Operator Name Role Phone Iain Gracia MD Primary Care Provider [phone] Allergies No known active allergies Medications cholecalciferol [...] BEFORE NEEDED DIRECTED 3 tablet 3 08/27/20 20 Active Additional Information Patient taking differently: 20 mg oral Daily PRN, TAKE 1 TABLET BY MOUTH ONE HOUR BEFORE NEEDED DIRECTED,Indications: Erectile Dysfunction, Informant: Self, Reported on 11/01/2024 [id number]-sm on-minerals tabletIndications: Vitamin Deficiency Prevention Take 1 [...] MG) BY MOUTH DAILY 90 tablet 09/23/19 Active Active Problems Problem Noted Date Diagnosed [...] refer to urology. GERD (gastroesophageal reflux disease) 0 Assessment & Plan (01/01/2024 7:43 AM [...] chantix. I also gave resources such as [facility] smoking cessation clinic and 5-450-YLYG-NOW for additional support. I spent 4 minutes [...] chantix. I also gave resources such as [facility] smoking cessation clinic and 3-085-SLYQ-NOW for additional support. I spent 4 minutes [...] therapy. I also gave resources such as [facility] smoking cessation clinic and [phone]-BUXV-NOW for additional support. 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 Encounters Date Type Department Care Team Description 11/04/2024 Documentation [facility] Multiple Sclerosis [address] [place] [phone] Susan Victoria RN 11/04/2024 Orders Only [facility] Multiple Sclerosis [address] [place] [phone] Eduardo Lopez MD Multiple sclerosis ([facility]) (Primary Dx) 11/01/2024 10:00 AM BROKERAGE MANAGER Telemedicine [facility] Multiple Sclerosis [address] [place] [phone] Eduardo Lopez MD Multiple sclerosis ([facility]) (Primary Dx); Male erectile disorder; Abnormal gait; Cervical stenosis of spinal canal, mod-severe by MRI 2021.; Left hand weakness 10/04/[address] [address] Ernst Delgadillo MD from Last 3 Months Immunizations Immunization Administration Dates Next Due Influenza, Quadrivalent, Spl it, Preservative Free, Intramuscular 06/22/2020 Pfizer SARS-CoV-2 Monovalent Vaccination (12+ Yrs) PURPLE 12/08/2020,11/09/2020 Tdap 12/26/2022 Surgical History Surgery Date Site/Laterality Comments APPENDECTOMY 09/14/1985 - 09/13/1986 Appendectomy - (Added by TW Conv) CYST REMOVAL buttock LITHOTRIPSY 09/14/2009 - 09/13/2010 IMPLANT 2009' Medical History Medical History Date Comments Personal history of urinary calculi Nephrolithiasis - (Added by TW Conv) Acute embolism and thrombosi s of deep vein of lower extremity (HCC) Deep vein thrombosis of lower extremity - (Added by TW Conv) Multiple sclerosis ([facility]) Sleep apnea doesn't use cpap since weight loss Kidney stone Family History Medical History Relation Name Comments No Known Problems Brother Emphysema Father cabg Father pci Father No Known Problems Half-Brother No Known Problems Half-Sister alcoholism Maternal Grandmother Parkinsonism Mother Family history of Parkinson's disease - (Added by TW Conv) Alzheimer's disease Paternal Grandmother Zelalem Bee Relation Name Status Comments Brother Alive Father Alive Half-Brother Alive Half-Sister Alive Maternal Grandfather Maternal Grandmother Mother Alive Paternal Grandfather Paternal Grandmother Zelalem Bee Social History Tobacco Use Types Packs/Day Years [...] staff should administer the PHQ-9) 0 12/31/2023 [facility] - Occupational Stress Questionnaire Answer Date Recorded [...] on file Legal Sex Male 9:39 AM BROKERAGE MANAGER Gender Identity Male 02/15/2021 10:38 AM CDT Sexual Orientation Straight 02/15/2021 10 :38 AM CDT 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 Not on file Not on file Not on f ile Obstetrics History Last Filed Vital Signs Vital Sign Reading [...] Scheduled Procedures Name Priority Associated Diagnoses Date/Ti me COLONOSCOPY Open Access Colon cancer screening COLONOSCOPY Colon cancer screening Personal history of colonic polyps COLONOSCOPY Colon cancer screening Health Maintenance Due Date Last Done Comments Albumin Creatinine Ratio, Urine 1967 Hepatitis C Screening 1967 Dilated Eye Exam 1967 Foot Exam 1967 Hepatitis B Screening 1985 Pneumococcal vaccine <65 (1 of 2 - PCV) 1986 Zoster Vaccine (1 of 2) 2017 Colon Cancer Screening-Colonoscopy 12/11/2020 12/11/2017 Covid-19 Vaccine (3 - 2023-2 5 season) 2024 12/08/2020, 11/09/2020 Influenza Vaccine (#1) 2024 06/22/2020 Prostate Cancer Screening-PSA 12/26/2024 12/26/2022 Depression Screening 12/30/2024 12/31/2023, 12/26/2022, 12/20/2021, Additional history exists Lipid Panel 12/30/2024 12/31/2023, 12/13, 12/20/2021, Additional history exists Regular Well Visit/Exam 18-64 12/30/2024, 12/26/2022, 12/20/2021, Additional history exists eGFR 12/30/2024 12/31/2023, 12/13, 12/20/2021, Additional history exists Hemoglobin A1C 01/05/2025 07/07/2024, 03/14, 12/31/2023, Additional history exists Lung Cancer Screening 01/29/2025 01/29/2024 DTaP/Tdap/Td Vaccine (2 - Td or Tdap) 12/26/2032 12/26/2022 Colon Cancer Screening-CT Colonography Discontinued 12/11/2017 Colon Cancer Screening-DNA Stool Discontinued 12/12/19 Colon Cancer Screening-FIT Discontinued 12/11/2017 Colon Cancer Screening-Sigmoidoscopy Discontinued 12/11/2017 Medical Devices Explanted Type Area Front Desk Person Device Identifier Shelf Expiration Date Model / Serial / Lot [employer] [id number] Universa 6fr 26cm Radiopaque Positioner Monofilament Tether 2 - Sna - [id number] Implanted:Qty: 1 on 05/16/2021 by Darnell Somers MD at [facility] Explanted:Qty: 1 on 05/30/2021 by Emi Sawyer NP Stent Left: [employer] [id number] 03/08/2024 [id number] / NA / [id number] Procedures Procedure Name Priority Date/Time Associated Diagnosis [...] by: Mateo Lovett M.D. Ernst Delgadillo MD IM CT PROCEDURES Final Result * eGFR (12/31/2023 [...] 3:23 PM CDT 12/31/2023 6:32 PM CDT Ernst Delgadillo MD LAB BLOOD ORDERABLES [facility] al Result [facility] Department [place] [address] * (ABNORMAL) Lipid panel (12/31/2023 3:23 PM [...] revised on 2018. Triglycerides 213(H) <=149 mg/dL [facility] Comment: Interpretive Data Ages < or = [...] revised on 2018. HDL 44 >=40 mg/dL [facility] Comment: Interpretive Data Ages < or [...] on 2018. LDL, calculated 29 <=129 mg/dL [facility] Comment: Interpretive Data Ages < or [...] revised on 2018. Non-HDL Cholesterol 72 mg/dL [facility] Comment: Interpretive Data Ages < or = [...] last revised on 2018. Chol/HDL ratio 3 [facility] Blood 12/31/2023 3:23 PM CDT 12/31/2023 6:[address] [facility] Ernst Delgadillo MD LAB BLOOD ORDERABLES Fin al Result Performing Organization Address [facility] [place] [address] * PSA screen (12/26/2022 3:10 PM CDT) PSA-Total 0.89 <=3.90 ng/mL [facility] Comment: Interpretive Data AGE SEX REFERENCE [...] 3:10 PM CDT 12/26/2022 5:[address] [facility] Ernst Delgadillo MD LAB BLOOD ORDERABLES Fin al Result Performing Organization Address [facility] [place] [address] * (ABNORMAL) HM COLONOSCOPY (12/11/2017) Scribed HM Colonoscopy Abnormal 12/11/2017 Chele Mejia MD HEALTH MAINTENANCE Final Result from Last 3 Months or Most Recently Relevant to Health Maintenance [place] [facility] Care Teams Dethistler Operator Relationship Specialty Start Date End Date Iain Gracia MD PCP - General Internal Medicine 10/17/24
[2024-12-12 13:49] VITALS: BP 129/71; PULSE 92; RESP 18; TEMP 36.3; O2SAT 99
[2024-12-12] MEDS: LACTATED RINGERS 1,000 ML 150 ML IV CONT (14:06)
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
[2024-12-12 14:13] LABS: Glucose Point of Care 121 mg/dl (65-105)
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
[2024-12-12 15:05] VITALS: BP 94/55; PULSE 78; RESP 13; O2SAT 97
[2024-12-12 15:15] VITALS: BP 87/54; PULSE 73; RESP 14; O2SAT 97
[2024-12-12 15:25] VITALS: BP 91/59; PULSE 72; RESP 20; O2SAT 100
[2024-12-12 15:35] VITALS: BP 110/58; PULSE 70; RESP 20; O2SAT 100
== END 2024-12-12 15:37 | disposition home or self-care (01) ==
PROVIDERS: PCP Internal Medicine; Referring Provider Internal Medicine; Visit Provider Internal Medicine Gastroenterology
PROC: 0DJD8ZZ Inspection of Lower Intestinal Tract, Via Natural or Artificial Opening Endoscopic (ICD-10-PCS; CPT 45378; principal; 2024-12-12 14:30)
DX: Z12.11 Encounter for screening for malignant neoplasm of colon (principal); K63.5 Polyp of colon; K64.8 Other hemorrhoids; K57.30 Diverticulosis of large intestine without perforation or abscess without bleeding; E78.5 Hyperlipidemia, unspecified; K21.9 Gastro-esophageal reflux disease without esophagitis; I10 Essential (primary) hypertension; E11.9 Type 2 diabetes mellitus without complications; E55.9 Vitamin D deficiency, unspecified; N40.0 Benign prostatic hyperplasia without lower urinary tract symptoms; G35 Multiple sclerosis; F98.8 Other specified behavioral and emotional disorders with onset usually occurring in childhood and adolescence; E66.9 Obesity, unspecified; Z68.29 Body mass index [BMI] 29.0-29.9, adult; Z79.84 Long term (current) use of oral hypoglycemic drugs; Z79.01 Long term (current) use of anticoagulants; Z79.899 Other long term (current) drug therapy; Z98.890 Other specified postprocedural states; Z87.891 Personal history of nicotine dependence; Z87.442 Personal history of urinary calculi; Z86.79 Personal history of other diseases of the circulatory system; Z86.718 Personal history of other venous thrombosis and embolism
CPT/HCPCS: 45385; 82948; 88305; J2003; J2704; J7120

== ENCOUNTER 2025-01-26 15:00 | Outpatient (RCR) | payer OTHER, SELFPAY ==
--- NOTE | 2024-11-14 14:06 | BUOTOPEVAL ---
Assessment and note entered by Cheri Sanchez, OT Evaluation Information Assessment Status Evaluation Diagnosis multiple sclerosis Subjective Information Pt. reports around 2009, onset of L sided weakness , increased physical exertion resulting in increased unexplainable weakness, leading to diagnosis of multiple sclerosis. 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 Pt. uses cane when out of the home, reporting he often using furniture and tong for support in the home, or holding on to son or girlfriend while ambulating. Pt. attempted to use rollator walker, but could not mage with L UE. I can only sit at a table or lay in bed, due to difficulty getting up from low furniture in home, recently purchased lift chair for assist in sit to stand. Pt. reports girlfriend assists with dressing and functional transfers as needed; pt. reports independence in bathing, pt. reports he still drives. Pt. reports he is not longer able to assist in cooking in home , due to limited strength and dexterity in L UE. States he can sometimes assist when seated. Pt. reports interest in maintaining capacity for participation in daily activity and independent functional mobility. Reported Pain Level Pain Score 0: Self Report Assessment OT Clinical Summary Pt. is 59 year old M, referred by physician for increasing weakness/hemiparesis in L UE due to diagnosis of Multiple Sclerosis. Pt. demonstrated decreased ROM in L UE with trace ROM and strength in hand and wrist and functional strength and ROM at elbow and shoulder. Pt. reports continued difficulties with ADLs, IADLs, and functional transfers, requiring increased assist from family/ caregivers to complete daily activities. Pt. will benefit from skilled OT services including functional transfer training, therapeutic exercises including active ROM and strengthening, adaptive equipment training, caregiver/family education and training, ADL modifications, and home safety education to facilitate increased functional capacity, limit overall functional decline from progressive condition, decrease caregiver burden, and decreased risk of fall or injury. Plan of Care OT Services Indicated Yes These treatments will address the objective and functional deficits as defined above. The patient will be advanced safely and appropriately in order for the patient to progress towards his/her prior level of function. Additional exercises will be introduced and as well as a comprehensive home exercise program upon discharge, if needed, ?to ensure carryover of functional gains achieved in the clinic. This treatment plan has been reviewed and agreement upon by the patient.
--- NOTE | 2024-11-23 13:26 | OPREHPOC ---
Outpatient Therapy Plan of Care This is a Multidisciplinary Plan of Care that may contain components documented by all disciplines (PT, OT, and ST.) OT Problem 1 OT Problem #1 Knowledge Deficit OT Goal 1 Goal / Goal Update Pt. will demonstrate independence in HEP Target Visit 8 OT Problem 2 OT Problem #2 Impaired Functional ADLs OT Goal 1 Goal / Goal Update Pt. will demonstrate increased use of L UE for functional activity Target Visit 8 OT Problem 3 OT Problem #3 Impaired Strength OT Goal 1 Goal / Goal Update Pt. will demonstrate increase of 1 MMT grade per joint Target Visit 8
--- NOTE | 2024-11-30 15:35 | OPREHPOC ---
Outpatient Therapy Plan of Care This is a Multidisciplinary Plan of Care that may contain components documented by all disciplines (PT, OT, and ST.) PT Problem 1 PT Problem #1 Knowledge Deficit PT Goal 1 Goal / Goal Update *indep with HEP Target Visit 10 PT Goal 2 Goal / Goal Update * determine best assistive device for pt and correct use of it Target Visit 10 PT Problem 2 PT Problem #2 Impaired Functional Mobility PT Goal 1 Goal / Goal Update * sit/stand from 18 seat with use of 1 UE and good control/no plopping x 5 reps Target Visit 10 PT Goal 2 Goal / Goal Update *2 minute walking test distance of 240', to be able to improve community speed and walking Target Visit 10 PT Problem 3 PT Problem #3 Impaired Balance PT Goal 1 Goal / Goal Update * Tinetti balance/gait score of 17/28, to decrease risk for falls Target Visit 10 PT Problem 4 PT Problem #4 Impaired Gait PT Goal 1 Goal / Goal Update * pt ambulate with improved advancing of L LE-- slight lateral trunk motion to R and upright trunk /no flexion Target Visit 10 PT Goal 2 Goal / Goal Update * obtain orders from dr for L LE custom brace, to improve walking ability and pattern Target Visit 10 OT Problem 1 OT Problem #1 Knowledge Deficit OT Goal 1 Goal / Goal Update Pt. will demonstrate independence in HEP Target Visit 8 OT Problem 2 OT Problem #2 Impaired Functional ADLs OT Goal 1 Goal / Goal Update Pt. will demonstrate increased use of L UE for functional activity Target Visit 8 OT Problem 3 OT Problem #3 Impaired Strength OT Goal 1 Goal / Goal Update Pt. will demonstrate increase of 1 MMT grade per joint Target Visit 8
--- NOTE | 2024-11-30 15:35 | PTOPEVAL1 ---
Assessment and note entered by Radha Champion, PT Evaluation Information Assessment Status Evaluation ICD-10 Condition Codes (PT) Difficulty Walking R26.2;weakness,balance Other ICD-10 Condition Codes ( G 37 multiple sclerosis PT) Onset few years Subjective Information diagnosis of MS in 2011; past few years, more issues with walking and balance, having falls. weakness of L arm- not able to hold anything with it; in the past 6 months have fallen 2x; do have lots of times of loss of balance. have not had any PT treatment recently-- over 5 years ago; activity: use cane and furniture walking; live with fiancee; requires assist with dressing and home tasks; short distances with walking, not doing any shopping; two level home, stays on the main level, does not do steps, with 2 entry steps - use door frame; no longer working- have applied for disability; able to get in/out of his truck and drives; Goal: walk better, get stronger, better balance, be able to go out and go places Reported Pain Level Pain Score 0: Self Report Pain Score 0: Self Report Assessment PT Clinical Summary Bull has the diagnosis of MS, decrease strength, gait and balance skills. He is walking in the home and short distance from car into buildings. His daughter is with him today, Vonda and she is very supportive. Self assessment with the LE functional scale rating of 80% limitation of activity. He is also receiving OT services, due to L UE weakness. With the evaluation: he has trace strength of L hip, knee flexion and no L ankle motion; 5 reps sit/stand with use of both UE in 38 seconds from the w/c; 2 minute walking test distance of 170'; Tinetti balance score of 6/28= high risk for falls poor walking pattern with L LE advancing by trunk lateral motion to R and circumduction of leg, with foot sliding on the floor. Skilled PT services are indicated to increase LE strength, transfer, balance and gait skills, for increased independence and safety. Use of electrical stim to facilitate muscle contraction. Will request orders for L custom LE brace to facilitate his ability to ambulate. Plan of Care Interventions Electrical Stimulation,Gait Training,Manual Therapy,Neuro Re-education,Patient/Caregiver Education,Therapeutic Activities,Therapeutic Exercise PT Services Indicated Yes Treatment Frequency and 1-2x/wk for 10 visits Duration These treatments will address the objective and functional deficits as defined above. The patient will be advanced safely and appropriately in order for the patient to progress towards his/her prior level of function. Additional exercises will be introduced and as well as a comprehensive home exercise program upon discharge, if needed, ?to ensure carryover of functional gains achieved in the clinic. This treatment plan has been reviewed and agreement upon by the patient.
--- NOTE | 2025-01-13 15:05 | OTOPEVAL1 ---
Assessment and note entered by Cheri Sanchez, OT Evaluation Information Assessment Status Evaluation Diagnosis multiple sclerosis Subjective Information Pt. reports he is having increased stability in use of L UE with transfers. Pt. states, I really wasn't focused on using my L before. I am definitely using it more now. Pt. states he would like to be able to at least hold small items like my cellphone or a water bottle. Than would help a lot. Reported Pain Level Pain Score 0: Self Report Assessment OT Clinical Summary Pt. is 59 year old M, presenting for reevaluation after referral for increasing weakness/hemiparesis in L UE due to diagnosis of Multiple Sclerosis. Pt. demonstrates increasing ROM, strength, and endurance in L UE, still reporting difficulty with use in functional activity, while reporting increased use with functional transfers using R UE to position. Pt. will continue to benefit from skilled OT services including functional transfer training, therapeutic exercises including active ROM and strengthening, adaptive equipment training , caregiver/family education and training, ADL modifications, and home safety education to facilitate increased functional capacity, limit overall functional decline from progressive condition, decrease caregiver burden, and decreased risk of fall or injury. Plan of Care Interventions Therapeutic Exercise,Manual Therapy,Neuro Re- education,Therapeutic Activities,Self-Care/Home Management OT Services Indicated Yes Treatment Frequency and 1x/ week for 10 weeks Duration These treatments will address the objective and functional deficits as defined above. The patient will be advanced safely and appropriately in order for the patient to progress towards his/her prior level of function. Additional exercises will be introduced and as well as a comprehensive home exercise program upon discharge, if needed, ?to ensure carryover of functional gains achieved in the clinic. This treatment plan has been reviewed and agreement upon by the patient.
--- NOTE | 2025-01-13 15:06 | OPREHPOC ---
Outpatient Therapy Plan of Care This is a Multidisciplinary Plan of Care that may contain components documented by all disciplines (PT, OT, and ST.) PT Problem 1 PT Problem #1 Knowledge Deficit PT Goal 1 Goal / Goal Update *indep with HEP Target Visit 10 PT Goal 2 Goal / Goal Update * determine best assistive device for pt and correct use of it Target Visit 10 PT Problem 2 PT Problem #2 Impaired Functional Mobility PT Goal 1 Goal / Goal Update * sit/stand from 18 seat with use of 1 UE and good control/no plopping x 5 reps Target Visit 10 PT Goal 2 Goal / Goal Update *2 minute walking test distance of 240', to be able to improve community speed and walking Target Visit 10 PT Problem 3 PT Problem #3 Impaired Balance PT Goal 1 Goal / Goal Update * Tinetti balance/gait score of 17/28, to decrease risk for falls Target Visit 10 PT Problem 4 PT Problem #4 Impaired Gait PT Goal 1 Goal / Goal Update * pt ambulate with improved advancing of L LE-- slight lateral trunk motion to R and upright trunk /no flexion Target Visit 10 PT Goal 2 Goal / Goal Update * obtain orders from dr for L LE custom brace, to improve walking ability and pattern Target Visit 10 OT Problem 1 OT Problem #1 Knowledge Deficit OT Goal 1 Goal / Goal Update 1)Pt. will demonstrate independence in HEP 5/2 Progress Note 1) Progressing, Not Met Target Visit 19 Progress Not Met OT Problem 2 OT Problem #2 Impaired Functional ADLs OT Goal 1 Goal / Goal Update 1) Pt. will demonstrate increased use of L UE for functional activity 5/2 Progress Note 1) Partially met, increased ROM and strength, using only for functional transfers at this time Target Visit 19 Progress Partially Met OT Problem 3 OT Problem #3 Impaired Strength OT Goal 1 Goal / Goal Update 1) Pt. will demonstrate increase of 1 MMT grade per joint 5/2 Progress Note 1) Progressing, not met Target Visit 19 Progress Partially Met OT Problem 4 OT Problem #4 Impaired Functional ADLs OT Goal 1 Goal / Goal Update New Goal 5/2: Pt. will be able to hold phone in L UE Target Visit 19
--- NOTE | 2025-01-26 15:01 | OPREHPOC ---
Outpatient Therapy Plan of Care This is a Multidisciplinary Plan of Care that may contain components documented by all disciplines (PT, OT, and ST.) PT Problem 1 PT Problem #1 Knowledge Deficit PT Goal 1 Goal / Goal Update *indep with HEP 01-26-25 d/c goal met Target Visit 10 Progress Met PT Goal 2 Goal / Goal Update * determine best assistive device for pt and correct use of it 01-26-25 d/c goal met Target Visit 10 Progress Met PT Problem 2 PT Problem #2 Impaired Functional Mobility PT Goal 1 Goal / Goal Update * sit/stand from 18 seat with use of 1 UE and good control/no plopping x 5 reps 01-26-25 d/c goal met Target Visit 10 Progress Met PT Goal 2 Goal / Goal Update *2 minute walking test distance of 240', to be able to improve community speed and walking 01-26-25 d/c goal not met Target Visit 10 Progress Not Met PT Problem 3 PT Problem #3 Impaired Balance PT Goal 1 Goal / Goal Update * Tinetti balance/gait score of 17/28, to decrease risk for falls 01-26-25 d/c goal not met Target Visit 10 Progress Not Met PT Problem 4 PT Problem #4 Impaired Gait PT Goal 1 Goal / Goal Update * pt ambulate with improved advancing of L LE-- slight lateral trunk motion to R and upright trunk /no flexion 01-26-25 d/c goal not met Target Visit 10 Progress Not Met PT Goal 2 Goal / Goal Update * obtain orders from for L LE custom brace, to improve walking ability and pattern 01-26-25 d/c goal met Target Visit 10 Progress Met OT Problem 1 OT Problem #1 Knowledge Deficit OT Goal 1 Goal / Goal Update 1)Pt. will demonstrate independence in HEP 5/2 Progress Note 1) Progressing, Not Met Target Visit 19 Progress Not Met OT Problem 2 OT Problem #2 Impaired Functional ADLs OT Goal 1 Goal / Goal Update 1) Pt. will demonstrate increased use of L UE for functional activity / Progress Note 1) Partially met, increased ROM and strength, using only for functional transfers at this time Target Visit 19 Progress Partially Met OT Problem 3 OT Problem #3 Impaired Strength OT Goal 1 Goal / Goal Update 1) Pt. will demonstrate increase of 1 MMT grade per joint 5/2 Progress Note 1) Progressing, not met Target Visit 19 Progress Partially Met OT Problem 4 OT Problem #4 Impaired Functional ADLs OT Goal 1 Goal / Goal Update New Goal 2: Pt. will be able to hold phone in L UE Target Visit 19
--- NOTE | 2025-01-26 15:02 | PTOPDC ---
Assessment and note entered by Radha Champion, PT Assessment Status Discharge ICD-10 Condition Codes (PT) Difficulty Walking R26.2 Other ICD-10 Condition Codes ( G 37 multiple sclerosis PT) Onset few years Subjective Information overall may be a little better, but not a lot of improvement; am able to stand up better from my chair; have the order for the custom brace, but have not gone to get it yet; been doing the exercises at home; have not fallen since starting therapy, but have lost my balance and landed on the bed or chair; With the MS, he has good days and bad days, but L leg strength is not getting any better. Reported Pain Level Pain Score 0: Self Report Assessment PT Clinical Summary Bull has received a total of 10 PT sessions. Compared to the initial evaluation: he has not had any falls; LE functional scale self rating from 80 to 81% limitation in activity level; 2 minute walking test distance: 170' with cane, to 100' with kacie cane; gait pattern is the same; Tinetti balance score from 6 to 7/28; sit/stand transfer with good control/ no plopping and good control of the motions, is using both hands to stand up and R only for sitting down; education completed for gait training with kacie cane and HEP The goals were partially met. He has order for custom L LE brace, but has not got fitted yet; he is to call [facility] for appt and be fitted with a brace. After fitted and received the brace, discussed he get orders from dr to return to PT for gait training with brace. Discharge PT services. He is to continue walking and mobility as tolerated. Plan of Care PT Services Indicated No
== END 2025-02-09 23:59 | disposition home or self-care (01) ==
LOC: ANHOT 15:00
PROVIDERS: PCP Internal Medicine
DX: G35 Multiple sclerosis (principal)
CPT/HCPCS: 97110; 97116; 97161; 97165; 97530; 97535

== ENCOUNTER 2025-03-02 11:44 | Outpatient (CLI) | payer OTHER, SELFPAY ==
[2025-03-02 12:28] LABS: Anion Gap 10 mmol/L (4-12); Blood Urea Nitrogen 8 mg/dL (9-20); Carbon Dioxide 30 mmol/L (22-30); Chloride 102 mmol/L (98-107); Cholesterol 112 mg/dL (0-200); Estimated Glomerular Filt Rate > 60; Glucose 103 mg/dL (65-110); HDL Direct 46 mg/dL; Potassium 4.5 mmol/L (3.4-5.0); Sodium 142 mmol/L (137-145); Triglycerides 118 mg/dL (<150)
[2025-03-02 12:38] LABS: LDL Cholesterol Direct 34 mg/dL
[2025-03-02 12:50] LABS: Hemoglobin A1C 6.1 % (<5.7)
== END 2025-03-02 11:45 | disposition home or self-care (01) ==
LOC: ANHLAB 11:45
PROVIDERS: PCP Internal Medicine; Visit Provider Internal Medicine
DX: E78.2 Mixed hyperlipidemia (principal); E11.9 Type 2 diabetes mellitus without complications; I10 Essential (primary) hypertension
CPT/HCPCS: 36415; 80048; 80061; 83036

== ENCOUNTER 2025-08-23 13:18 | Outpatient (CLI) | payer OTHER, SELFPAY ==
[2025-08-23 13:37] LABS: Hematocrit 48.6 % (42.0-52.0); Hemoglobin 16.3 g/dL (14.0-18.0); Immature Granulocyte Percent A 0.2 % (0-0.5); Lymphocytes Absolute Auto 2.85 K/mm3 (0.9-3.2); Mean Corpuscular HGB Conc 33.5 g/dl (32-36); Mean Corpuscular Hemoglobin 33.7 pg (26-34); Mean Corpuscular Volume 100.6 fl (80-100); Nucleated Red Blood Cells Absolute Auto 0.000 K/mm3 (0.0-0.012); Nucleated Red Blood Cells Perc 0.0 % (0.0-0.2); Platelet Count Result 225 k/mm3 (150-375); Red Blood Count 4.83 M/mm3 (4.6-6.20); White Blood Count 8.3 K/mm3 (4.5-10.0)
[2025-08-23 13:38] LABS: Add Urine Microscopic? NO; Appearance Urine Clear (Clear); Glucose Urine UA 2+ mg/dL (Negative); Leukocyte Esterase Ur Negative LEU/UL (Negative); Nitrate Urine Negative (Negative); Specific Grav Ur 1.008 (1.001-1.035)
[2025-08-23 14:02] LABS: Alanine Aminotransferase 40 U/L (6-50); Albumin Level 4.6 g/dL (3.5-5.1); Alkaline Phosphatase 68 U/L (38-126); Anion Gap 8 mmol/L (4-12); Aspartate Amino Transferase 35 U/L (17-59); Bilirubin,Total 0.5 mg/dL (0.2-1.3); Blood Urea Nitrogen 8 mg/dL (9-20); Calcium 9.7 mg/dL (8.4-10.2); Carbon Dioxide 24 mmol/L (22-30); Chloride 106 mmol/L (98-107); Cholesterol 111 mg/dL (0-200); Estimated Glomerular Filt Rate > 60; Glucose 103 mg/dL (65-110); HDL Direct 52 mg/dL; Potassium 4.2 mmol/L (3.4-5.0); Sodium 138 mmol/L (137-145); Total Protein 7.9 g/dL (6.3-8.2); Triglycerides 85 mg/dL (<150)
[2025-08-23 14:35] LABS: Free T4 Free Thyroxine 1.04 ng/dL (0.78-2.19)
[2025-08-23 14:50] LABS: Thyroid Stimulating Hormone 0.981 uIU/mL (0.465-4.680)
[2025-08-23 19:05] LABS: Hemoglobin A1C 6.0 % (<5.7)
== END 2025-08-23 13:19 | disposition home or self-care (01) ==
LOC: ANHLAB 13:18
PROVIDERS: PCP Internal Medicine; Visit Provider Internal Medicine
DX: E78.2 Mixed hyperlipidemia (principal); I10 Essential (primary) hypertension; Z79.899 Other long term (current) drug therapy; Z13.29 Encounter for screening for other suspected endocrine disorder; E11.9 Type 2 diabetes mellitus without complications; E55.9 Vitamin D deficiency, unspecified
CPT/HCPCS: 36415; 80053; 80061; 81003; 82306; 83036; 84439; 84443; 85025

== ENCOUNTER 2025-08-28 08:32 | Outpatient (CLI) | payer OTHER, SELFPAY ==
--- NOTE | ~2025-08-28 | US_ITS ---
EXAMINATION: US aorta, 08/28/2025 8:48 MARKETING CONSULTANT HISTORY: Z87.891 - Personal history of nicotine dependence Comparison: None Technique: Augustin-scale and color Doppler images were obtained. Findings: There is no aneurysmal dilatation of the aorta, the visualized proximal common iliac arteries are unremarkable. Examination limited by bowel gas. IMPRESSION: No aneurysm identified Reviewed, dictated and finalized at location P. ETING CONSULTANT IMPRESSION: No aneurysm identified
== END 2025-08-28 08:33 | disposition home or self-care (01) ==
PROVIDERS: PCP Internal Medicine; Visit Provider Internal Medicine
DX: I10 Essential (primary) hypertension (principal); Z87.891 Personal history of nicotine dependence
CPT/HCPCS: 76775

== ENCOUNTER 2025-09-08 10:55 | Outpatient (CLI) | payer OTHER, SELFPAY ==
--- NOTE | ~2025-09-08 | XR_ITS ---
Examination: XR wrist RT min 3V, XR hand RT min 3V Clinical History: M25.531 - Pain in right wrist Comparison: None Technique: 4 views right wrist, 3 views right hand Findings/impression: Right wrist: 1. No fracture or dislocation right wrist. Right hand: 1. Oblique mildly displaced fracture fourth metacarpal mid shaft. 2. No other acute abnormality identified. Reviewed, dictated and finalized at location R. THESIOLOGISTS' ASSISTANT
--- OUTSIDE RECORDS SUMMARY | 2025-09-08 11:00 | XMS_ITS | Clinical Summary ---
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 Sex Male 7:59 PM CDT Gender Identity Not on file Sexual Orientation Not on file Plan of Treatment Health Maintenance Due Date Last Done Comments ASCVD LDL 1967 ASCVD Statin 1967 Colorectal Cancer Screening Colonoscopy (10 Years) 1967 Annual Physical 1970 Hepatitis C 1985 Hepatitis B Vaccines (1 of 3 - 19+ 3-dose series) 1986 Pneumococcal Vaccine: 50+ Years (1 of 2 - PCV) 1986 Zoster Vaccines (1 of 2) 2017 COVID-19 Vaccine (3 - 2024-2 6 season) 2025 12/08/2020, 11/09/2020 Influenza Adult (#1) 2025 06/22/2020 DTaP, Tdap and Td Vaccines ( 2 - Td or Tdap) 12/26/2032 12/26/2022 Hepatitis A Vaccines Aged Out No long er eligible based on patient's age to complete this topic Meningococcal B Vaccine Aged Out No l onger eligible based on patient's age to complete this topic Meningococcal Vaccine Aged Out No migdalia lindsey eligible based on patient's age to complete this topic RSV Immunizations Under 20 Months Aged Out No longer eligible b ased on patient's age to complete this topic Insurance [facility] 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
--- OUTSIDE RECORDS SUMMARY | 2025-09-08 11:00 | XMS_ITS | Clinical Summary ---
Author Organization [facility] Address [address] [place] [address] Care Team Providers Care Mold Blower Name Role Phone Iain Gracia MD Primary Care Provider [phone] Allergies No known active allergies Medications cholecalciferol [...] Erectile Dysfunction, Informant: Self, Reported on 11/01/2024 [id number] on-minerals tabletIndications: Vitamin Deficiency Prevention Take 1 [...] daily with breakfast 90 tablet 3 07/07/20 Active lisinopril-hydroCH LOROthiazide (ZESTORETIC) 20-12.5 mg per tabletIndications: hypertension Take 1 tablet by mouth daily 90 tablet 3 07/07/20 Active Xarelto 20 mg tabletIndications: History of [...] chantix. I also gave resources such as [facility] smoking cessation clinic and 5-304-OYWD-NOW for additional support. I spent 4 minutes [...] chantix. I also gave resources such as [facility] smoking cessation clinic and 8-504-CDTO-NOW for additional support. I spent 4 minutes [...] therapy. I also gave resources such as [facility] smoking cessation clinic and 5-125-EEQI-NOW for additional support. I spent 4 minutes [...] - (Added by TW Conv) CYST REMOVAL 1989' buttock LITHOTRIPSY 09/14/2009 - 09/13/2010 IMPLANT 2009' Medical History Medical History Date Comments Personal history of urinary calculi Nephrolithiasis - (Added by TW Conv) Acute embolism and thrombosi s of deep vein of lower extremity (HCC) Deep vein thrombosis of lower extremity - (Added by TW Conv) Multiple sclerosis Sleep apnea doesn't use cpap since weight loss Kidney stone Family History Medical History Relation Name Comments No Known Problems Brother Emphysema Father cabg Father pci Father No Known Problems Half-Brother No Known Problems Half-Sister alcoholism Maternal Grandmother Parkinsonism Mother Family history of Parkinson's disease - (Added by TW Conv) Alzheimer's disease Paternal Grandmother Grandma Rohit Relation Name Status Comments Brother Alive Father Alive Half-Brother Alive Half-Sister Alive Maternal Grandfather Maternal Grandmother Mother Alive Paternal Grandfather Paternal Grandmother Grandma Rohit Social History Tobacco Use Types Packs/Day Years Used Date Smoking Tobacco: Every Day Cigarettes 1.5 44 Started: 1979 Smokeless Tobacco: Never Tobacco Cessation:Ready [...] staff should administer the PHQ-9) 0 12/31/2023 [place] [place] [facility] [employer] - Occupational Stress [...] on file 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 Gender Identity Male 02/15/2021 10:38 AM CDT Sexual Orientation Straight 02/15/2021 10 :38 AM CDT 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 on file Not on file Not [...] CDT pt verbalized Height 185.4 cm (6' 1) 07/07/2024 1:07 PM CDT Body Mass Index [...] 2) 2017 Colon Cancer Screening-Colonoscopy 12/11/2020 12/11/2017 Prostate Cancer Screening-PSA 12/26/2024 12/26/2022 Depression Screening 12/30/2024 12/31/2023, 12/26/2022, 12/20/2021, Additional history exists Lipid Panel 12/30/2024 12/31/2023, 12/13, 12/20/2021, Additional history exists Regular Well Visit/Exam 18-64 12/30/2024, 12/26/2022, 12/20/2021, Additional history exists eGFR 12/30/2024 12/31/2023, 12/13, 12/20/2021, Additional history exists Hemoglobin A1C 01/05/2025 07/07/2024, 03/14, 12/31/2023, Additional history exists Lung Cancer Screening 01/29/2025 01/29/2024 Covid-19 Vaccine (3 - 2024-2 6 season) 2025 12/08/2020, 11/09/2020 Influenza Vaccine (#1) 2025 06/22/2020 DTaP/Tdap/Td Vaccine (2 - Td or Tdap) 12/26/2032 12/26/2022 Colon Cancer Screening-CT Colonography Discontinued 12/11/2017 Colon Cancer Screening-DNA Stool Discontinued 12/12/19 Colon Cancer Screening-FIT Discontinued 12/11/2017 Colon Cancer Screening-Sigmoidoscopy Discontinued 12/11/2017 Medical Devices Explanted Type Area Hired Help Device Identifier Shelf Expiration Date Model / Serial / Lot [id number] 6fr 26cm Radiopaque Positioner Monofilament Tether 2 - Sna - [id number] Implanted:Qty: 1 on 05/16/2021 by Darnell Somers MD at [facility] Explanted:Qty: 1 on 05/30/2021 by Emi Sawyer NP Stent Left: Ureter [employer] [id number] 03/08/2024 [id number] / NA / [id number] Procedures Procedure Name Priority Date/Time Associated Diagnosis [...] MD LAB BLOOD ORDERABLES Fin al [facility] Department of Laboratories [place], [place] [id number] * (ABNORMAL) Lipid panel (12/31/2023 3:23 PM [...] revised on 2018. Triglycerides 213(H) <=149 mg/dL [facility] Comment: Interpretive Data Ages < or [...] revised on 2018. HDL 44 >=40 mg/dL [facility] Comment: Interpretive Data Ages < or [...] on 2018. LDL, calculated 29 <=129 mg/dL [facility] Comment: Interpretive Data Ages < or [...] revised on 2018. Non-HDL Cholesterol 72 mg/dL [facility] Comment: Interpretive Data Ages < or [...] last revised on 2018. Chol/HDL ratio [address] [facility] Blood 12/31/2023 3:23 PM CDT 12/31/2023 6:20 PM CDT Ernst Delgadillo MD LAB BLOOD ORDERABLES Fin al Result [facility] Department [place] [address] * PSA screen (12/26/2022 3:10 PM CDT) PSA-Total 0.89 <=3.90 ng/mL [facility] Comment: Interpretive Data AGE SEX REFERENCE [...] MD LAB BLOOD ORDERABLES Fin al Result [facility] Department [place] [address] * (ABNORMAL) COLONOSCOPY (12/11/2017) Scribed HM Colonoscopy Abnormal 12/11/2017 us Historical Provider HEALTH MAINTENANCE Final Result from Last 3 Months or Most Recently Relevant to Health Maintenance [place] [facility] Care Teams Mold Blower Relationship Specialty Start Date End Date Iain Gracia MD PCP - General Internal Medicine 10/17/24
== END 2025-09-08 10:56 | disposition home or self-care (01) ==
PROVIDERS: PCP Internal Medicine; Visit Provider Internal Medicine
DX: S62.324A Displaced fracture of shaft of fourth metacarpal bone, right hand, initial encounter for closed fracture (principal); X58.XXXA Exposure to other specified factors, initial encounter; W19.XXXA Unspecified fall, initial encounter
CPT/HCPCS: 73110; 73130